=== PATIENT | female | born 1950 | race Caucasian/White ===

== ENCOUNTER 2022-03-08 11:08 | Observation (INO) | payer MEDICARE ==
[2022-03-08] MEDS ORDERED: Ketorolac Tromethamine 30 MG/ML VIAL ONE (12:53)
[2022-03-08] MEDS ORDERED: HYDROcodone/Acetaminophen 5/325 mg Tablet ONE (12:53)
[2022-03-08 18:06] LABS: #Monocytes 0.5 10x3/uL (0.0-1.1); #Neutrophils 5.9 10x3/uL (1.5-8.4); %Basophils 0.3 % (0.0-2.0); %Lymphocytes 12.5 % (18.0-47.0); %Monocytes 6.8 % (0.0-10.0); Hemoglobin 12.6 g/dL (12.0-15.5); Mean Corpuscular HGB CONC 31.3 g/dL (32.0-36.0); Mean Corpuscular Hemoglobin 27.8 pg (27.0-33.0); Mean Platelet Volume 9.4 fl (7.4-10.4); Platelet Count 323 10x3/uL (150-450); RBC Distribution Width 15.5 % (11.5-14.5); Red Blood Cell (RBC) Count 4.53 10x6/uL (3.90-5.03); White Blood Cell (WBC) Count 7.3 10x3/uL (3.5-10.5)
[2022-03-08 18:20] LABS: ALT (SGPT) 12 U/L (8-55); AST (SGOT) 19 U/L (5-34); Albumin 3.9 g/dL (3.4-4.8); Alkaline Phosphatase 77 U/L (40-110); Anion Gap 17 mmol/L (10-20); BUN (Urea Nitrogen) 23 mg/dL (9.8-20.1); Bilirubin, Total 0.8 mg/dL (0.2-1.2); Calc. Creatinine Clearance 0 mL/min (70-130); Calcium 9.3 mg/dL (7.8-10.44); Carbon Dioxide 22 mmol/L (23-31); Chloride 102 mmol/L (98-107); Globulin 3.9 g/dL (2.4-3.5); Glucose 108 mg/dL (80-115); Potassium 4.6 mmol/L (3.5-5.1); Protein, Total 7.8 g/dL (5.8-8.1); Sodium 136 mmol/L (136-145)
[2022-03-08] MEDS ORDERED: Labetalol HCl 100 MG/20 ML VIAL ONE (18:28)
[2022-03-08] MEDS ORDERED: Acetaminophen 325 MG TAB PO PRN (19:34)
[2022-03-08] MEDS ORDERED: Calcium Carbonate 500 MG ChewTAB PO PRN (19:34)
[2022-03-08] MEDS ORDERED: Ondansetron PF 4 MG/2 ML Vial IVP PRN (19:34)
[2022-03-08] MEDS ORDERED: Guaifenesin DM 100-10/5 ML UDCUP PO PRN (19:34)
[2022-03-08] MEDS ORDERED: HYDROcodone/Acetaminophen 5/325 mg Tablet PO PRN (19:34)
[2022-03-08] MEDS ORDERED: Morphine 2 MG/ML VIAL SLOW IVP PRN (19:35)
[2022-03-08] MEDS ORDERED: hydrALAZINE 20 MG/ML VIAL SLOW IVP PRN (19:38)
[2022-03-08 20:50] VITALS: BMI 66.2
[2022-03-08] MEDS ORDERED: Sodium Chloride 0.9% 500 ML IV SCH (21:00)
[2022-03-08] MEDS: Amiodarone 200 MG TAB PO SCH (22:04)
[2022-03-08] MEDS: Gabapentin 100 MG CAP PO SCH (22:04)
[2022-03-08] MEDS: Senokot S 8.6-50 MG TAB PO SCH (22:07)
[2022-03-09 01:07] LABS: SARS-CoV-2 NAA Rapid Test Not Detected (NotDetected)
[2022-03-09 04:34] LABS: Anion Gap 16 mmol/L (10-20); BUN (Urea Nitrogen) 30 mg/dL (9.8-20.1); Calc. Creatinine Clearance 116 mL/min (70-130); Calcium 8.6 mg/dL (7.8-10.44); Carbon Dioxide 23 mmol/L (23-31); Chloride 104 mmol/L (98-107); Glucose 114 mg/dL (80-115); Potassium 4.4 mmol/L (3.5-5.1); Sodium 139 mmol/L (136-145)
[2022-03-09] MEDS ORDERED: Aripiprazole 10 MG TAB PO SCH (09:00)
[2022-03-09] MEDS ORDERED: Amlodipine 5 MG TAB PO SCH (09:00)
[2022-03-09] MEDS ORDERED: Lidocaine 5% Patch TD SCH (09:00)
[2022-03-09] MEDS ORDERED: Enoxaparin Sodium 40 MG/0.4 ML SYRINGE SC SCH (09:00)
[2022-03-09] MEDS ORDERED: FLUoxetine HCl 20 MG CAP PO SCH (09:00)
[2022-03-09 10:10] VITALS: TEMP 98.3
[2022-03-09 13:03] VITALS: BP 116/54
[2022-03-09] MEDS: Carvedilol 25 MG TAB PO SCH ×2 (16:57)
[2022-03-09] MEDS: Gabapentin 100 MG CAP PO SCH ×2 (16:57→16:59)
[2022-03-09] MEDS: Amiodarone 200 MG TAB PO SCH (16:58)
[2022-03-09] MEDS: Senokot S 8.6-50 MG TAB PO SCH (16:59)
[2022-03-09] MEDS ORDERED: LIDOCAINE Patch Removal TOP SCH (21:00)
[2022-03-10] MEDS ORDERED: FLUoxetine HCl 20 MG CAP PO SCH (09:00)
[2022-03-10] MEDS ORDERED: Non-Formulary Medication 1 EACH (Losartan/Hydrochlorothiazide [Losartan-Hctz 100-25 Mg Tab PO SCH (09:00)
[2022-03-10] MEDS ORDERED: Empagliflozin 25 MG TAB PO SCH (09:00)
[2022-03-10] MEDS ORDERED: Furosemide 20 MG TAB PO SCH (09:00)
[2022-03-10] MEDS ORDERED: Famotidine 20 MG TAB PO SCH (09:00)
== END 2022-03-09 18:21 | disposition home or self-care (01) ==
LOC: CSHERS 11:08 → INTOOBSV 20:46 → CSHTELE 20:46
PROVIDERS: ADMIT Family Medicine; ATTEND Family Medicine
DX: M25.561 Pain in right knee (principal); M17.11 Unilateral primary osteoarthritis, right knee; R53.81 Other malaise; I16.0 Hypertensive urgency; I12.9 Hypertensive chronic kidney disease with stage 1 through stage 4 chronic kidney disease, or unspecified chronic kidney disease; N18.9 Chronic kidney disease, unspecified; F32.A Depression, unspecified; E66.01 Morbid (severe) obesity due to excess calories; Z68.44 Body mass index [BMI] 60.0-69.9, adult; Z66 Do not resuscitate; Z79.84 Long term (current) use of oral hypoglycemic drugs; Z79.899 Other long term (current) drug therapy; Z91.018 Allergy to other foods; Z20.822 Contact with and (suspected) exposure to COVID-19
CPT/HCPCS: 73564; 80048; 80053; 84484; 85025; 97139; 97530; U0002; 36415; 96372; 96374; G0378; J1885; J7030